=== PATIENT | male | born 1995 | race African-American/Black ===

== ENCOUNTER 2021-09-08 09:26 | Day surgery (SDC) | payer BC ==
[~2021-09-08 09:26] MED LIST: Midazolam 1 MG/ML 2 ML SDV ONE; Propofol 200 MG/20 ML SDV ONE; fentaNYL 100 MCG/2 ML SDV ONE
[2021-09-08] MEDS ORDERED: Lactated Ringers 1,000 ML IV SCH (09:30)
[2021-09-08] MEDS ORDERED: Sodium Chloride 0.9% 10 ML Syringe FLUSH PRN (09:30)
[2021-09-08] MEDS ORDERED: Norflurane/HFc 245FA Medium Stream Spray 103.5 ML Can TOP PRN (10:19)
[2021-09-08] MEDS ORDERED: Propofol 200 MG/20 ML SDV ONE ×2 (11:18→11:24)
[2021-09-08] MEDS ORDERED: fentaNYL 100 MCG/2 ML SDV ONE (11:18)
[2021-09-08] MEDS ORDERED: Midazolam 1 MG/ML 2 ML SDV ONE (11:18)
[2021-09-08] MEDS ORDERED: Ondansetron 4 MG/2 ML SDV ONE (11:18)
[2021-09-08] MEDS ORDERED: Bupivacaine 0.25%/EPINEPHrine 1:200,000 30 ML SDV INJECT ONE (11:34)
[2021-09-08] MEDS ORDERED: Lidocaine 1% 5 ML VIAL INJECT ONE (11:35)
== END 2021-09-08 13:27 | disposition home or self-care (01) ==
LOC: LL.SDS 09:26
PROVIDERS: ATTEND Surgery
DX: N47.1 Phimosis (principal); L28.0 Lichen simplex chronicus
CPT/HCPCS: 00920; J2250; J2405; J2704; J3010; J7120

== ENCOUNTER → 2022-03-12 | Emergency (ER) | payer BC | LOC: LL.ED 15:20 | DX: S02.5XXA Fracture of tooth (traumatic), initial encounter for closed fracture (principal); S01.511A Laceration without foreign body of lip, initial encounter; S10.91XA Abrasion of unspecified part of neck, initial encounter; F10.129 Alcohol abuse with intoxication, unspecified; Y04.0XXA Assault by unarmed brawl or fight, initial encounter | CPT/HCPCS: 12011; 99283 ==